=== PATIENT | male | born 1985 | race African-American/Black ===

== ENCOUNTER 2023-08-08 00:04 | Inpatient (IN) | payer OTHER ==
[2023-08-08 00:16] VITALS: BMI 24.4
[2023-08-08] MEDS ORDERED: HALOPERIDOL LACTATE 5 MG/ML IM ONE (01:35)
[2023-08-08] MEDS ORDERED: HALOPERIDOL LACTATE 5 MG/ML ONE (02:12)
[2023-08-08 02:59] LABS: BASO % 1.1 % (0-2.0); EOS % 0.9 % (0-4.5); HEMATOCRIT 37.6 % (35.4-49); HEMOGLOBIN 12.5 GM/dL (11.7-16.9); MCHC 33.2 g/dl (32.0-35.9); MEAN CELL VOLUME 87.4 fl (80-96); MEAN PLT VOLUME 7.2 fl (7.5-11.1); MONO % 7.9 % (3.8-10.2); NEUT % 64.1 % (42.8-82.8); PLATELET COUNT 257 10^3/uL (134-434); RDW 13.2 % (11.9-15.9); WHITE BLOOD COUNT 3.9 K/mm3 (4.0-10.0)
[2023-08-08 03:18] LABS: CHLORIDE 108 mmol/L (98-107); POTASSIUM 4.4 mmol/L (3.5-5.1); SODIUM 142 mmol/L (136-145)
[2023-08-08 03:20] LABS: ALBUMIN 4.2 g/dl (3.4-5.0); ANION GAP 5 mmol/L (4-13); BLOOD UREA NITROGEN 6.3 mg/dL (7-18); CO2 29 mmol/L (21-32); GLUCOSE,RANDOM 103 mg/dL (74-106)
[2023-08-08 03:23] LABS: CREATININE 0.9 mg/dL (0.55-1.3); SGOT/AST 30 U/L (15-37); SGPT/ALT 21 U/L (13-61)
[2023-08-08 03:25] LABS: BILIRUBIN,TOTAL 0.6 mg/dL (0.2-1); TOT PROT 7.4 g/dl (6.4-8.2)
[2023-08-08 03:26] LABS: ALK PHOS 61 U/L (45-117)
[2023-08-08] MEDS ORDERED: ENOXAPARIN NA (PORCINE) 40 MG/0.4 ML DISP.SYRIN SQ ONE (09:13)
[2023-08-08] MEDS ORDERED: ACETAMINOPHEN 1000 MG/100 ML BAG IVPB PRN (12:17)
[2023-08-08] MEDS ORDERED: KETOROLAC TROMETHAMINE 15 MG/ML VIAL IVPUSH PRN (12:18)
[2023-08-08] MEDS ORDERED: clonazePAM 0.5 MG TABLET ONE ×2 (13:25→21:21)
[2023-08-08] MEDS ORDERED: levETIRAcetam 500 MG/5 ML INJECTION VIAL IVPB ONE ×2 (13:25→21:21)
[2023-08-08] MEDS: ENOXAPARIN NA (PORCINE) 40 MG/0.4 ML DISP.SYRIN SQ SCH (13:57)
[2023-08-08] MEDS: clonazePAM 0.5 MG TABLET PO SCH ×2 (13:58→21:30)
[2023-08-08] MEDS: levETIRAcetam 500 MG/5 ML INJECTION VIAL IVPB SCH ×2 (13:58→21:30)
[2023-08-08 15:44] VITALS: RESP 18
[2023-08-08] MEDS: BENZTROPINE MESYLATE 0.5 MG TABLET (FP) PO SCH ×2 (16:00→22:28)
[2023-08-08] MEDS ORDERED: QUEtiapine FUMARATE 100 MG TABLET (FP) ONE (21:21)
[2023-08-08] MEDS: QUEtiapine FUMARATE 100 MG TABLET (FP) PO SCH (21:30)
[2023-08-08] MEDS ORDERED: levETIRAcetam 250 MG TABLET PO SCH (22:00)
[2023-08-09] MEDS: clonazePAM 0.5 MG TABLET PO SCH ×3 (06:42→22:06)
[2023-08-09] MEDS: BENZTROPINE MESYLATE 0.5 MG TABLET (FP) PO SCH ×3 (06:43→22:12)
[2023-08-09] MEDS: CHOLECALCIFEROL (VIT D3) 1,000 UNIT (25 MCG) TABLET PO SCH (09:10)
[2023-08-09] MEDS: risperiDONE 1 MG TABLET PO SCH (09:10)
[2023-08-09] MEDS: QUEtiapine FUMARATE 100 MG TABLET (FP) PO SCH ×2 (09:10→22:06)
[2023-08-09] MEDS: ENOXAPARIN NA (PORCINE) 40 MG/0.4 ML DISP.SYRIN SQ SCH (09:12)
[2023-08-09 09:40] LABS: HEMATOCRIT 38.2 % (35.4-49); HEMOGLOBIN 12.5 GM/dL (11.7-16.9); MCH 28.9 pg (25.7-33.7); MCHC 32.7 g/dl (32.0-35.9); MEAN CELL VOLUME 88.5 fl (80-96); PLATELET COUNT 252 10^3/uL (134-434); RBC 4.32 M/mm3 (4.00-5.60); WHITE BLOOD COUNT 2.8 K/mm3 (4.0-10.0)
[2023-08-09 09:51] LABS: POTASSIUM 3.9 mmol/L (3.5-5.1)
[2023-08-09 10:08] LABS: ALBUMIN 3.7 g/dl (3.4-5.0); BLOOD UREA NITROGEN 7.4 mg/dL (7-18); CALCIUM 9.3 mg/dL (8.5-10.1); MAGNESIUM 2.1 mg/dL (1.8-2.4)
[2023-08-09 10:10] LABS: BILIRUBIN,DIRECT 0.2 mg/dL (0.0-0.2)
[2023-08-09 10:11] LABS: CREATININE 0.9 mg/dL (0.55-1.3); PHOSPHOROUS 2.9 mg/dL (2.5-4.9)
[2023-08-09 10:12] LABS: BILIRUBIN,TOTAL 0.7 mg/dL (0.2-1)
[2023-08-09 10:13] LABS: TOT PROT 6.7 g/dl (6.4-8.2)
[2023-08-09] MEDS: levETIRAcetam 500 MG/5 ML INJECTION VIAL IVPB SCH ×2 (11:18→22:06)
[2023-08-10] MEDS: BENZTROPINE MESYLATE 0.5 MG TABLET (FP) PO SCH ×3 (05:13→22:05)
[2023-08-10] MEDS: clonazePAM 0.5 MG TABLET PO SCH ×3 (05:15→22:04)
[2023-08-10] MEDS: ENOXAPARIN NA (PORCINE) 40 MG/0.4 ML DISP.SYRIN SQ SCH (10:58)
[2023-08-10] MEDS: risperiDONE 1 MG TABLET PO SCH (10:58)
[2023-08-10] MEDS: QUEtiapine FUMARATE 100 MG TABLET (FP) PO SCH ×2 (10:59→22:04)
[2023-08-10] MEDS: CHOLECALCIFEROL (VIT D3) 1,000 UNIT (25 MCG) TABLET PO SCH (10:59)
[2023-08-10] MEDS: levETIRAcetam 500 MG/5 ML INJECTION VIAL IVPB SCH ×2 (11:21→22:03)
[2023-08-11] MEDS: clonazePAM 0.5 MG TABLET PO SCH (06:13)
[2023-08-11] MEDS: BENZTROPINE MESYLATE 0.5 MG TABLET (FP) PO SCH (06:13)
[2023-08-11 12:45] VITALS: BP 118/86; PULSE 92; TEMP 98.4
== END 2023-08-11 09:07 | disposition home or self-care (01) | DRG 751 ==
LOC: JER 00:04 → JERBED 01:36 → J5S 08-09 00:43 → OBSVTOIN 08-10 09:50
PROVIDERS: ADMIT Internal Medicine
DX: F23 Brief psychotic disorder (principal); F39 Unspecified mood [affective] disorder; F84.0 Autistic disorder; G40.909 Epilepsy, unspecified, not intractable, without status epilepticus
CPT/HCPCS: 0241U-QW; 36415; 80048; 80053; 80076; 80307; 83036; 83735; 84100; 84439; 84443; 84484; 85025; 85027; 93005; 93010; 97116-GP; 99285-25; G0378

== ENCOUNTER 2023-08-26 12:48 | Emergency (ER) | payer OTHER ==
[2023-08-26 13:13] VITALS: BP 92/52; PULSE 110; RESP 18; TEMP 98.5; BMI 21.7
[2023-08-26 16:17] LABS: BASO % 1.5 % (0-2.0); EOS % 1.1 % (0-4.5); HEMATOCRIT 39.4 % (35.4-49); HEMOGLOBIN 12.9 GM/dL (11.7-16.9); LYMPH % 47.7 % (8-40); MCH 28.5 pg (25.7-33.7); MCHC 32.9 g/dl (32.0-35.9); MEAN CELL VOLUME 86.8 fl (80-96); MEAN PLT VOLUME 7.6 fl (7.5-11.1); MONO % 6.7 % (3.8-10.2); PLATELET COUNT 267 10^3/uL (134-434); RBC 4.54 M/mm3 (4.00-5.60); RDW 13.5 % (11.9-15.9); WHITE BLOOD COUNT 4.5 K/mm3 (4.0-10.0)
[2023-08-26 16:32] LABS: POTASSIUM 3.7 mmol/L (3.5-5.1)
[2023-08-26 16:34] LABS: ALBUMIN 4.2 g/dl (3.4-5.0); BLOOD UREA NITROGEN 5.2 mg/dL (7-18); CALCIUM 9.7 mg/dL (8.5-10.1)
[2023-08-26 16:37] LABS: CREATININE 0.9 mg/dL (0.55-1.3)
[2023-08-26 16:39] LABS: BILIRUBIN,TOTAL 0.4 mg/dL (0.2-1); TOT PROT 7.5 g/dl (6.4-8.2)
== END 2023-08-26 18:09 | disposition home or self-care (01) ==
LOC: JER 12:48
DX: R45.6 Violent behavior (principal); R46.89 Other symptoms and signs involving appearance and behavior
CPT/HCPCS: 36415; 80053; 85025; 99282-25